=== PATIENT | male | born 1960 | race Caucasian/White ===

== ENCOUNTER 2017-10-22 08:11 | Emergency (ER) | payer OTHER ==
[~2017-10-22] VITALS: Ht 160 cm; Wt 60.6 kg
[2017-10-22] MEDS ORDERED: ULTRAM50 MG PO (10:08)
[2017-10-22 10:46] VITALS: BP 154/89
== END 2017-10-22 10:48 | disposition home or self-care (01) ==
LOC: EME 08:11
PROC: 2W38X1Z Immobilization of Right Upper Extremity using Splint (ICD-10-PCS; principal; 2017-10-22)
DX: S42.401A Unspecified fracture of lower end of right humerus, initial encounter for closed fracture (principal); W22.8XXA Striking against or struck by other objects, initial encounter; Y99.0 Civilian activity done for income or pay; R20.2 Paresthesia of skin; M25.721 Osteophyte, right elbow; F17.200 Nicotine dependence, unspecified, uncomplicated
CPT/HCPCS: 73080; 73090; 73110; 99281; 99284